=== PATIENT | male | born 2000 | race Asian ===

== ENCOUNTER 2021-07-08 18:58 | Emergency (ER) | payer OTHER, SELFPAY ==
[2021-07-08] MEDS ORDERED: Ibuprofen 200 MG TAB ONE (19:25)
== END 2021-07-08 20:55 | disposition home or self-care (01) ==
LOC: CSHERS 18:58
DX: S60.221A Contusion of right hand, initial encounter (principal); J45.909 Unspecified asthma, uncomplicated; V43.62XA Car passenger injured in collision with other type car in traffic accident, initial encounter; W22.10XA Striking against or struck by unspecified automobile airbag, initial encounter